=== PATIENT | male | born 1950 | race Caucasian/White ===

== ENCOUNTER 2020-11-04 16:16 | Emergency (ER) | payer MEDICARE ==
[2020-11-04 18:53] LABS: HEMOGLOBIN 14.5 gm/dl (14.0-17.5); RED BLOOD COUNT 4.67 M/UL (4.20-5.50); WHITE BLOOD COUNT 6.5 K/UL (4.5-11.0)
[2020-11-04 19:28] LABS: BUN/CREATININE RATIO 20 (0-10)
== END 2020-11-04 23:30 | disposition home or self-care (01) ==
LOC: ER1 16:16
PROVIDERS: Nurse Practitioner
DX: U07.1 COVID-19 (principal); I25.10 Atherosclerotic heart disease of native coronary artery without angina pectoris; I10 Essential (primary) hypertension; F17.200 Nicotine dependence, unspecified, uncomplicated
CPT/HCPCS: 71045; 80053; 81001; 82550; 82553; 83690; 83874; 84484; 85025; 93005; 99285; U0002